=== PATIENT | female | born 1945 | race American Indian/Alaskan Native ===

== ENCOUNTER 2018-05-17 11:39 | Emergency (ER) | payer MEDICARE ==
[2018-05-17] MEDS ORDERED: MORPHINE IV ONE (12:21)
[2018-05-17] MEDS ORDERED: NACL 0.9% 1000 ML 1,000 ML IV ONE (12:21)
[2018-05-17] MEDS ORDERED: ZOFRAN IV ONE (12:21)
--- NOTE | 2018-05-17 12:25 | Emergency Department Report ---
ED Abdominal Pain HPI - General Chief Complaint: Urogenital-Female Stated Complaint: (L) KIDNETY PAIN Time Seen by Provider: 05/17/18 12:15 Source: patient, EMS Mode of arrival: Stretcher Limitations: No Limitations - History of Present Illness Initial Comments: Patient is 73 years old female with history of hypertension and diabetes. Patient presented to the ER complaining of left flank pain that radiated to her left chest. Patient stated that pain started last night. Patient denied any nausea or vomiting. Patient denied any diarrhea or fever. MD Complaint: abdominal pain, flank pain -: Last night Location: L flank Radiation: chest Migration to: no migration Severity: moderate Severity scale (0 -10): 5 Quality: sharp Consistency: intermittent - Related Data Allergies Allergy/AdvReac Type Severity Reaction Status Date / Time No Known Allergies Allergy Unverified 05/04/15 12:04 ED Review of Systems ROS: Stated complaint: (L) KIDNETY PAIN Other details as noted in HPI Comment: All other systems reviewed and negative Constitutional: denies: chills, fever Respiratory: denies: cough, orthopnea, shortness of breath, SOB with exertion, SOB at rest Cardiovascular: chest pain. denies: palpitations, dyspnea on exertion Gastrointestinal: abdominal pain. denies: nausea, vomiting, diarrhea, constipation, hematemesis, melena, hematochezia Musculoskeletal: back pain. denies: joint swelling, arthralgia Neurological: denies: headache, weakness, numbness, paresthesias, confusion, abnormal gait ED Past Medical Hx - Past Medical History Previous Medical History?: Yes Hx Hypertension: Yes Hx Diabetes: Yes - Surgical History Past Surgical History?: Yes Additional Surgical History: knee surgery - Social History Smoking Status: Current Some Day Smoker Substance Use Type: Marijuana ED Physical Exam - General Limitations: No Limitations General appearance: alert, in no apparent distress - Head Head exam: Present: atraumatic, normocephalic, normal inspection - Eye Eye exam: Present: normal appearance, PERRL - ENT ENT exam: Present: normal exam, normal orophraynx, mucous membranes moist - Neck Neck exam: Present: normal inspection, full ROM. Absent: tenderness, meningismus, lymphadenopathy, thyromegaly - Respiratory Respiratory exam: Present: normal lung sounds bilaterally. Absent: respiratory distress, wheezes, chest wall tenderness - Cardiovascular Cardiovascular Exam: Present: regular rate, normal rhythm, normal heart sounds - GI/Abdominal GI/Abdominal exam: Present: soft, tenderness (left lower quadrants), normal bowel sounds. Absent: distended, guarding, rebound, rigid, mass, bruit, pulsatile mass, hernia - Extremities Exam Extremities exam: Present: normal inspection, full ROM, normal capillary refill. Absent: pedal edema, calf tenderness - Back Exam Back exam: Present: normal inspection, full ROM, CVA tenderness (L). Absent: tenderness, CVA tenderness (R), muscle spasm, paraspinal tenderness, vertebral tenderness - Neurological Exam Neurological exam: Present: alert, oriented X3, CN II-XII intact, normal gait, reflexes normal - Skin Skin exam: Present: warm, intact, normal color ED Course Vital Signs 05/17/18 05/17/18 11:52 14:40 Temperature 98.8 F 98 F Pulse Rate 70 52 L Respiratory 18 16 Rate Blood Pressure 153/82 Blood Pressure 132/62 [Left] O2 Sat by Pulse 98 100 Oximetry ED Medical Decision Making - Lab Data Result diagrams: 05/17/18 12:28 05/17/18 12:28 - Radiology Data Radiology results: report reviewed Referring Physician: SHAGUFTA SILVA Patient Name: SHIRA SHRESTHA Date of : 1945 Sex: Female Report Date: 2018-05-17 Report Status: Finalized Findings [facility] [address] [place] [address] Cat Scan Report Signed Patient: SHIRA SHRESTHA MR#: [id number] : 1945 Acct:[id number] Age/Sex: 73 / F ADM Date: 05/17/18 Loc: ED Attending Dr: Ordering Physician: SHAGUFTA SILVA Date of Service: 05/17/18 Procedure(s): CT abdomen pelvis wo con Accession Number(s): [id number] cc: SHAGUFTA SILVA CT ABDOMEN PELVIS WITHOUT CONTRAST: HISTORY: Abdominal pain, left flank pain. COMPARISON: none. TECHNIQUE: Helical CT in 1.25mm intervals without IV contrast. Sagittal and coronal reconstructions. FINDINGS: Lung bases: Normal. Liver: Normal. Biliary system: Cholelithiasis is suspected. The gallbladder appears normal caliber. The common bile duct is dilated up to 1.2 cm. Choledocholithiasis should be considered. Pancreas: Normal. Spleen: Normal. Kidneys/ureters/bladder: There are a few scattered cysts in both kidneys measuring up to 1 cm. The ureters and bladder are unremarkable. Adrenal glands: Normal. Aorta: Scattered calcifications. No aneurysm. Intestines: Mild sigmoid diverticulosis and mild fecal retention are noted. No obvious obstruction or focal inflammation. Appendix: Normal. Pelvic viscera: Hysterectomy. Ascites: None. Adenopathy: None. Musculoskeletal: Intact. IMPRESSION: Cholelithiasis and choledocholithiasis are suspected. Please correlate with the patient's clinical symptoms. No clear explanation for left flank pain. Mild sigmoid diverticulosis. Fecal retention. Transcribed By: TTR Dictated By: MICHELLE TURNER JR, MD Electronically Authenticated By: MICHELLE TURNER JR, MD Signed Date/Time: 05/17/181507 DD/ 04 TD/TT: 05/17/181507 - Medical Decision Making Ms Shrestha is 73 years old female with history of hypertension and diabetes. Patient presented to the ER complaining of left flank pain that radiated to her left chest. Patient stated that pain started last night. Patient denied any nausea or vomiting. Patient denied any diarrhea or fever. She have a left CVA tenderness on the exam with suprapubic tenderness also. Patient stated that she is feeling much better after the pain medicine. Patient urine is strongly positive for UTI. I reviewed the patient's CT abdomen and pelvis and now looked that they concerned that Dr. Turner from radiology have common bile duct stone. Patient does not have any clinical evidence to indicated that. Patient has no pain on the right side of the abdomen or mid side of the abdomen and no tenderness on palpation. Patient's liver enzymes are completely normal with normal total bilirubin. Patient improved significantly after the pain medicine. I will discharge patient home for the diagnosis of UTI will start on Levaquin and I advised her to follow up with her primary care physician in the next 2-3 days. I also advised to return to the ER if her symptoms are not improving. Critical care attestation.: If time is entered above; I have spent that time in minutes in the direct care of this critically ill patient, excluding procedure time. ED Disposition Clinical Impression: Abdominal pain, UTI (urinary tract infection) Disposition: TO HOME OR SELFCARE Is pt being admited?: No Condition: Stable Instructions: Abdominal Pain (ED), Urinary Tract Infection in Women (ED) Referrals: PRIMARY CARE, [Primary Care Provider] - 3-5 Days
[2018-05-17 12:46] LABS: Basophils # (Auto) 0.1 K/mm3 (0.0-0.1); Basophils % (Auto) 1.2 % (0.0-1.8); Eosinophils # (Auto) 0.2 K/mm3 (0.0-0.4); Eosinophils % (Auto) 2.2 % (0.0-4.3); Hematocrit 42.5 % (30.3-42.9); Hemoglobin 14.2 gm/dl (10.1-14.3); Lymphocytes # (Auto) 3.6 K/mm3 (1.2-5.4); Lymphocytes % (Auto) 41.3 % (13.4-35.0); Mean Corpuscular HGB Conc 33 % (30-34); Mean Corpuscular Hemoglobin 27 pg (28-32); Mean Corpuscular Volume 82 fl (79-97); Monocytes # (Auto) 0.4 K/mm3 (0.0-0.8); Monocytes % (Auto) 4.3 % (0.0-7.3); Platelet Count 357 K/mm3 (140-440); Red Blood Count 5.21 M/mm3 (3.65-5.03); Red Cell Distribution Width 15.3 % (13.2-15.2)
[2018-05-17 12:54] LABS: Bacteria,Urine 1+ /HPF (Negative); Bilirubin,Urine NEG (Negative); Blood,Urine SM (Negative); Color,Urine Yellow (Yellow); Mucus,Urine FEW /HPF; Urobilinogen,Urine < 2.0 mg/dL (<2.0)
[2018-05-17 13:03] LABS: Calcium 9.8 mg/dL (8.4-10.2)
[2018-05-17 13:33] LABS: Alanine Aminotransferase 12 units/L (7-56); Albumin 3.6 g/dL (3.9-5)
[2018-05-17 13:38] LABS: Bilirubin,Direct < 0.2 mg/dL (0-0.2)
[2018-05-17] MEDS ORDERED: ROCEPHIN/NS 1 GM/50 ML 1 GM/50 ML BAG IV ONE (14:30)
--- NOTE | 2018-05-17 15:09 | Cat Scan Report ---
CT ABDOMEN PELVIS WITHOUT CONTRAST: HISTORY: Abdominal pain, left flank pain. COMPARISON: none. TECHNIQUE: Helical CT in 1.25mm intervals without IV contrast. Sagittal and coronal reconstructions. FINDINGS: Lung bases: Normal. Liver: Normal. Biliary system: Cholelithiasis is suspected. The gallbladder appears normal caliber. The common bile duct is dilated up to 1.2 cm. Choledocholithiasis should be considered. Pancreas: Normal. Spleen: Normal. Kidneys/ureters/bladder: There are a few scattered cysts in both kidneys measuring up to 1 cm. The ureters and bladder are unremarkable. Adrenal glands: Normal. Aorta: Scattered calcifications. No aneurysm. Intestines: Mild sigmoid diverticulosis and mild fecal retention are noted. No obvious obstruction or focal inflammation. Appendix: Normal. Pelvic viscera: Hysterectomy. Ascites: None. Adenopathy: None. Musculoskeletal: Intact. IMPRESSION: Cholelithiasis and choledocholithiasis are suspected. Please correlate with the patient's clinical symptoms. No clear explanation for left flank pain. Mild sigmoid diverticulosis. Fecal retention.
[2018-05-17 15:41] VITALS: BP 132/66
== END 2018-05-17 15:40 | disposition home or self-care (01) ==
LOC: ED 11:39
DX: N39.0 Urinary tract infection, site not specified (principal); I10 Essential (primary) hypertension; E11.9 Type 2 diabetes mellitus without complications; F17.200 Nicotine dependence, unspecified, uncomplicated
CPT/HCPCS: 36415; 74176; 80048; 80074; 81001; 84484; 85025; 93005; 93010; 96365; 96375; 99284; J0696; J2270; J2405; J7030